=== PATIENT | female | born 1985 | race Caucasian/White ===

== ENCOUNTER 2020-12-07 06:06 | Emergency (ER) | payer OTHER ==
[~2020-12-07] VITALS: Ht 160 cm; Wt 57.3 kg
[2020-12-07 06:22] VITALS: BP 118/68
--- NOTE | 2020-12-07 08:13 | PHYS DOC ---
Past History Past Medical History: No Pertinent History Past Surgical History: Other Additional Past Surgical Histo: L ACL/MENISCUS REPAIR, SEPTOPLASTY Alcohol Use: None Adult General Chief Complaint Chief Complaint: LOWER EXTREMITY SWELLING [facility] HPI Patient is a 35-year-old previously healthy female who presents to the emergency room with right lower extremity swelling. She states that this is been ongoing for the last week. She denies any redness, erythema, pain. She states that it does feel tight. She called her nurse today who told her that she should be evaluated for a DVT. She does have a family history of DVTs. She has never had a DVT previously. She denies any recent surgery, recent travel, decreased activity. She is currently training for a marathon. She does drink about a gallon of water a day. She denies any swelling in her other leg. Review of Systems Review of Systems Complete ROS is negative unless otherwise documented in HPI Allergies Allergies Allergies Coded Allergies Type Severity Reaction Last Updated Verified Penicillins Allergy Intermediate Rash 12/07/20 Yes Physical Exam Physical Exam General: Awake, alert, NAD. Well Nourished, well hydrated. Cooperative HEENT: Atraumatic, EOMI, PERRL, airway patent, moist oral mucosa Neck: Supple, trachea midline Respiratory: CTA bilaterally, normal effort, no wheezing/crackles CV: RRR, no murmur, cap refill <2 GI: Soft, nondistended, nontender, no masses MSK: Right lower extremity, 2+ DP pulse, 2+ pitting edema from ankle to mid calf, no tenderness, normal sensation, no signs of injury, no rash Skin: Warm, dry, intact Neuro: A&O x3, speech NL, sensory and motor grossly intact, no focal deficits Psych: Normal affect, normal mood, not suicidal or homicidal Current Patient Data Vital Signs Vital Signs Date Time Temp Pulse Resp B/P (MAP) Pulse Ox O2 Delivery O2 Flow Rate FiO2 12/07/20 06:22 97.6 66 16 118/68 (85) 100 Room Air EKG EKG [] Radiology/Procedures Radiology/Procedures [] Heart Score Risk Factors: Risk Factors: DM, Current or recent (<one month) smoker, HTN, HLP, family history of CAD, obesity. Risk Scores: Risk Factors: DM, Current or recent (<one month) smoker, HTN, HLP, family history of CAD, obesity. Course & Med Decision Making Course & Med Decision Making Pertinent Labs and Imaging studies reviewed. (See chart for details) Patient is a 35-year-old female who presents to the emergency room with right lower extremity swelling. Patient does not have any signs of injury or cellulitis. This is likely dependent edema. She does not have bilateral edema or signs and symptoms that would be concerning for congestive heart failure, renal failure, hepatic failure. Ultrasound was done which did not show a DVT at this time. Patient's test results and vitals while in the ED were fully reviewed and discussed with the patient. Patient is stable and at this time does not need admission to the hospital. We have discussed strict return precautions and the importance of following up with their Primary Care Physician. Patient stated understanding and was given an opportunity to ask any questions. Patient is in agreement with plan. Dragon Disclaimer Dragon Disclaimer This electronic medical record was generated, in whole or in part, using a voice recognition dictation system. Departure Departure: Impression: Primary Impression: Edema Disposition: 01 DC HOME SELF CARE/HOMELESS Condition: STABLE Referrals: PCP,UNKNOWN (PCP) Patient Instructions: Peripheral Edema JOSTIN VÁSQUEZ MD Dec 07, 2020 08:13
--- NOTE | 2020-12-07 08:19 | RAD ---
Exam: US DPLX VENOUS EXTREMITY LOWER RT Indication: swelling Technique: Color-flow and pulsed wave duplex ultrasound with compression of venous structures of th e right lower extremity. Comparison: None Available. Findings: Duplex ultrasound with compression of the deep venous structures of the right lower extremi ty from the common femoral vein through the popliteal vein is negative for DVT. The posterior tibial and peroneal veins are segmentally visualized and patent where seen. Normal venous waveforms and augm entation are noted throughout. Impression: No evidence for DVT in the right lower extremity. Electronically signed by: Jasson Stephenson MD (12/07/2020 8:16 AM) [id number]
== END 2020-12-07 08:39 | disposition home or self-care (01) ==
LOC: ER 06:06
DX: R60.9 Edema, unspecified (principal); Z88.0 Allergy status to penicillin
CPT/HCPCS: 93971; 99284-25